=== PATIENT | male | born 1960 | race Caucasian/White ===

== ENCOUNTER 2018-11-15 18:14 | Emergency (ER) | payer OTHER ==
[~2018-11-15] VITALS: Ht 188 cm; Wt 79.4 kg
[2018-11-15] MEDS ORDERED: IBUPROFEN 600 MG TABLET PO ONE (19:30)
[2018-11-15] MEDS ORDERED: IBUPROFEN 600 MG TABLET ONE (19:34)
--- NOTE | 2018-11-15 19:35 | NUR ---
Socks provided to patient at his request.
--- NOTE | 2018-11-15 19:41 | NUR ---
Patient discharged to home in stable conditon. Written and verbal after care instructions given. Patient verbalizes understanding of instructions.
== END 2018-11-15 19:43 | disposition home or self-care (01) ==
LOC: ER 18:17
DX: M79.671 Pain in right foot (principal); M79.672 Pain in left foot; F17.200 Nicotine dependence, unspecified, uncomplicated
CPT/HCPCS: A4663

== ENCOUNTER 2018-11-16 00:05 | Emergency (ER) | payer OTHER ==
--- NOTE | 2018-11-16 00:08 | NUR ---
Patient seen in this ER earlier, he comes back in stating " I want to go chill in that bed again. I have a place to go but I do not feel like going there right now. My head hurts from thinking about having to walk there and I just want to go chill in the hospital bed". Patient asked if he has a medical emergency and if there is any way we can assist him in this ER. Patient was also offered a list of resources. Patient states " I am not homeless, I have a place go to". Patient left the ER without being triaged. He states that he will walk to his home a this time.
== END 2018-11-16 00:15 | disposition left against medical advice (07) ==
LOC: ER 00:07
DX: Z53.21 Procedure and treatment not carried out due to patient leaving prior to being seen by health care provider (principal)